=== PATIENT | male | born 1980 | race Caucasian/White ===

== ENCOUNTER 2024-10-08 16:56 | Emergency (ER) | payer MEDICAID, SELFPAY ==
[2024-10-08 17:17] VITALS: BP 124/81; PULSE 73; RESP 18; TEMP 36.8; O2SAT 97; BMI 24.2
--- NOTE | 2024-10-08 17:17 | ED.GENADULT ---
HPI - General Adult General Chief complaint: Urogenital-Male Stated complaint: Left & lower back pain hurting lung/ burn urinatin Time Seen by Provider: 10/08/24 23:11 Source: patient, RN notes reviewed, old records reviewed and full time staff interpreter Mode of arrival: ambulatory Limitations: language barrier History of Present Illness ED Provider: Samina MENDOZA narrative: 44-year-old male presents for evaluation of right-sided low back pain and left upper back pain patient reports he has had pain for 1 week. He denies any specific injury. He states waking up with the pain. He reports having had kidney stones in the past in the location of his pain is similar but it does not feel exactly the same. He denies any burning with urination to me, though his triage note reports that he did mentioned dysuria. 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 into different angles denies any fevers, chills, cough denies any abdominal pain, nausea vomiting, diarrhea Related Data Previous Rx's ?Medication ?Instructions ?Recorded cyclobenzaprine 10 mg tablet 10 mg PO TID PRN muscle spasm #20 10/08/24 tabs hydroxyzine HCl 25 mg tablet 25 mg PO TID PRN itching #30 tabs 10/08/24 ibuprofen 600 mg tablet 600 mg PO Q6H PRN pain #20 tabs 10/08/24 Allergies Allergy/AdvReac Type Severity Reaction Status Date / Time squid Allergy Rash Verified 10/08/24 17:20 Review of Systems Constitutional: Constitutional: Denies body ache(s), Denies chills, Denies fever(s) and Denies headache(s) Eyes: Eyes: Denies blurry vision ENT: Denies vertigo and Denies headache(s) Cardiovascular: Cardiovascular: Denies chest pain and Denies dyspnea on exertion Respiratory: Respiratory: Denies cough and Denies dyspnea on exertion Gastrointestinal: Gastrointestinal: Denies abdominal pain and Denies vomiting Musculoskeletal: Musculoskeletal: Reports back pain Integumentary/Breasts: Skin/Breast: Denies rash Neurologic: Denies vertigo and Denies headache(s) Psychiatric: Psychiatric: Denies anxiety PMFSH Social History Social History Alcohol intake: never Smoked in Last 30 Days: No Use of substances other than those prescribed or required for medical reasons: No Advance Directives: No Advance Directives Information Provided: Yes Physical Exam ED Vital Signs: Vital Signs - 24 hr 10/08/24 17:17 10/08/24 23:25 Temperature 98.2 F 97.2 F Pulse Rate 73 59 Respiratory Rate 18 18 Blood Pressure 124/81 131/85 Pulse Oximetry 97 98 Oxygen Delivery Method Room Air Room Air BMI result Body Mass Index 24.2 Const General: healthy appearing, comfortable, no acute distress, alert and awake Nutritional Appearance: well nourished Orientation/consciousness: patient oriented x3 HENMT Head: Yes normocephalic and Yes atraumatic Eyes Eyelids: Yes eyelids normal Conjunctivae: conjunctivae normal Sclerae: sclerae normal Corneas: corneas normal Pupils: Equal, round and reactive pupils present EOM: EOMs intact bilaterally Neck Neck: Yes full ROM Resp Effort & Inspection: normal respiratory effort, able to speak in complete sentences, no audible wheezes and not labored Auscultation: clear to auscultation bilaterally GI Inspection: No distended Palpation (GI): Soft to palpation, not firm, nontender, no guarding and not rigid Back/Spine/Pelvis Other: there is mild tenderness to the right lumbar paraspinous region. No vertebral tenderness. No step-offs or deformities Skin General skin exam: no rashes or lesions noted and elasticity normal Neuro General: patient oriented x3 Cranial nerves: Yes Equal, round and reactive pupils present and Yes Bilaterally intact EOM present Cognition (Neuro): normal cognition Extrem Other: Moving all extremities well without any obvious deformities Course Course Course Narrative: This is an RME: Additional HPI, ROS, PE not included below will be deferred to primary provider. RME assessment and note performed by: Kiarra Malone PA-C This is a [id number]-male, with no known medical problems, who presents to the ER with a complaint of back pain and dysuria since yesterday. Also reporting left sided CP. No nausea or vomiting. Endorsing dizziness. Plan: Labs, UA, further ER eval needed Medical Decision Making Medical Decision Making MDM Narrative: 44-year-old male presents for evaluation of low back pain, right greater than left. His physical exam is reassuring. He denies using IV drugs, there is no evidence of infectious cause. He has a history of kidney stones, there is no hematuria or pyuria. Renal function is within normal limits. clinically I think the patient's pain is most likely related to his job in maintenance and muscle strains. I discussed this with the patient and we will discharge him with cyclobenzaprine and ibuprofen. He reports he is having issues with anxiety in his requesting medication to help him when he is home and feeling lonely. He is not suicidal or depressed. I agreed to prescribe him a short course of hydroxyzine Differential Diagnosis Differential Diagnoses: The differential diagnosis associated with the presentation includes muscle strain Obstructive uropathy Pyelonephritis Radiculopathy Anxiety Lab Data MDM Lab Attestation statement: I reviewed the patient's lab results. no leukocytosis or significant anemia. There is a very mild anemia of unclear etiology. normal platelet count. No electrolyte abnormalities warranting intervention. Urinalysis unremarkable 10/08/24 17:53 10/08/24 17:53 Labs: Lab Results 10/08/24 Range/Units 17:53 WBC 8.4 (4.8-10.8) X10*3/uL RBC 4.51 L (4.60-5.80) X10*6/uL Hgb 13.7 L (14.0-18.0) g/dl Hct 38.7 L (42.0-52.0) % MCV 85.8 (80.0-98.0) fL MCH 30.4 (27.0-33.0) pg MCHC 35.4 (31.0-36.0) g/dl RDW 12.9 (11.0-16.0) % Plt Count 207 (160-400) X10*3/uL MPV 10.1 (9.4-12.4) fL Immature Gran % (Auto) 0.2 (0.0-0.4) % Neut % (Auto) 67.1 (45-73) % Lymph % (Auto) 23.1 (20-40) % Cherry % (Auto) 7.7 (2-11) % Eos % (Auto) 1.4 (0-4) % Baso % (Auto) 0.5 (0-2) % Lymph # (Auto) 2.0 (1.2-4.9) X10*3/uL Cherry # (Auto) 0.7 (0.1-1.2) X10*3/uL Eos # (Auto) 0.1 (0.0-0.4) X10*3/uL Baso # (Auto) 0.0 (0.0-0.2) X10*3/uL Abs Immat Gran (auto) 0.02 (0.00-0.03) X10*3/uL Absolute Neuts (auto) 5.7 (2.0-8.3) x10*3/uL Absolute Nucleated RBC 0.000 (0.0-0.012) X10*3/uL Nucleated RBC % (auto) 0.0 (0.0-0.2) /100WBC Sodium 141 (135-145) mmol/L Potassium 3.6 (3.3-5.1) mmol/L Chloride 108 (96-108) mmol/L Carbon Dioxide 27 (22-29) mmol/L Anion Gap 10 L (12-20) BUN 16 (9-16) mg/dL Creatinine 0.85 (0.5-1.4) mg/dL Estim Creat Clear Calc 148.5 Estimated GFR > 60 Random Glucose 108 (60-115) mg/dL Calcium 9.2 (8.4-10.2) mg/dL Magnesium 2.2 (1.6-2.6) mg/dL Total Bilirubin 0.6 (0.0-1.0) mg/dL Direct Bilirubin 0.2 (0.0-0.5) mg/dL AST 20 (5-37) U/L ALT 25 (0-40) U/L Alkaline Phosphatase 58 (39-117) U/L Total Protein 7.2 (6.5-8.0) g/dL Albumin 4.8 (3.5-5.0) g/dL Urine Color Yellow Urine Appearance Clear Urine pH 5.5 (5.0-9.0) Ur Specific Lindsay 1.025 (1.005-1.025) Urine Protein Negative (Neg-Trace) mg/dL Urine Glucose (UA) Negative (Negative) mg/dL Urine Ketones Trace (Negative) mg/dL Urine Blood Negative (Negative) Urine Nitrite Negative (Negative) Ur Leukocyte Esterase Negative (Negative) Tests considered The following testing was considered but not selected: consider CT abdomen and pelvis without contrast to evaluate for obstructive uropathy the patient's pain is clinically more likely musculoskeletal in his urinalysis is clear, CT scan deferred Discharge Plan Discharge Clinical Impression: Back pain, Anxiety Patient Disposition: Home, Self-Care Instructions: Acute Low Back Pain (ED), Anxiety (ED) Additional Instructions: your workup in the ER today was reassuring. I think your pain is most likely related to muscle spasms from contorting your back in different angles. Your urinalysis did not show signs of blood or infection. Your blood work was also reassuring use ibuprofen as needed for pain. Use cyclobenzaprine as needed for muscle spasms. This may make you drowsy, do not drink alcohol or drive after taking it you may take hydroxyzine as needed for anxiety you may follow-up with your primary doctor Prescriptions: New ibuprofen 600 mg tablet 600 mg PO Q6H PRN (Reason: pain) Qty: 20 0RF cyclobenzaprine 10 mg tablet 10 mg PO TID PRN (Reason: muscle spasm) Qty: 20 0RF hydroxyzine HCl 25 mg tablet 25 mg PO TID PRN (Reason: itching) Qty: 30 0RF Stand Alone Forms: Work/School Release Print Language: Martiniquais
--- NOTE | 2024-10-08 17:22 | ECG_ITS ---
Test Reason : cp Blood Pressure : */* mmHG Vent. Rate : 57 BPM Atrial Rate : 57 BPM P-R Int : 154 ms QRS Dur : 92 ms QT Int : 416 ms P-R-T Axes : 84 82 68 degrees QTcB Int : 404 ms Sinus bradycardia Otherwise normal ECG No previous ECGs available Referred By: Kiarra Malone Electronically Signed By: JOSELIN LUIS
--- NOTE | 2024-10-08 17:56 | MHC.EDTECH ---
delay on ekg. ekg machine was being used on another patient nurse aware
[2024-10-08 18:02] LABS: MANUAL DIFF FLAG NO
[2024-10-08 18:03] LABS: Basophils Percent Auto 0.5 % (0-2); Eosinophils Absolute Auto 0.1 X10*3/uL (0.0-0.4); Eosinophils Percent Auto 1.4 % (0-4); Hematocrit 38.7 % (42.0-52.0); Hemoglobin 13.7 g/dl (14.0-18.0); Imm Gran Abs Auto 0.02 X10*3/uL (0.00-0.03); Imm Gran Pct Auto 0.2 % (0.0-0.4); Lymphocytes Percent Auto 23.1 % (20-40); Mean Corpuscular HGB Conc 35.4 g/dl (31.0-36.0); Mean Corpuscular Hemoglobin 30.4 pg (27.0-33.0); Mean Corpuscular Volume 85.8 fL (80.0-98.0); Mean Platelet Volume 10.1 fL (9.4-12.4); Monocytes Absolute Auto 0.7 X10*3/uL (0.1-1.2); Monocytes Percent Auto 7.7 % (2-11); Neutrophils Absolute Auto 5.7 x10*3/uL (2.0-8.3); Neutrophils Percent Auto 67.1 % (45-73); Platelet Count 207 X10*3/uL (160-400); Red Blood Count 4.51 X10*6/uL (4.60-5.80); Red Cell Distribution Width 12.9 % (11.0-16.0); White Blood Count 8.4 X10*3/uL (4.8-10.8)
[2024-10-08 18:04] LABS: Appearance Urine Clear; Color Urine Yellow; Glucose Urine UA Negative (Negative); Leukocyte Esterase Urine Negative (Negative); Nitrite Urine Negative (Negative); PH 5.5 (5.0-9.0); Specific Gravity - Urine 1.025 (1.005-1.025); Urine Blood Negative (Negative); Urine Ketones Trace mg/dL (Negative); Urine Protein Negative (Neg-Trace)
[2024-10-08 18:19] LABS: Alanine Aminotransferase 25 U/L (0-40); Albumin Level 4.8 g/dL (3.5-5.0); Alkaline Phosphatase 58 U/L (39-117); Anion Gap 10 (12-20); Aspartate Amino Transferase 20 U/L (5-37); Bilirubin Direct 0.2 mg/dL (0.0-0.5); Bilirubin Total 0.6 mg/dL (0.0-1.0); Blood Urea Nitrogen 16 mg/dL (9-16); Calcium 9.2 mg/dL (8.4-10.2); Carbon Dioxide 27 mmol/L (22-29); Chloride 108 mmol/L (96-108); Creatinine Clr Calc Pharmacy 148.5; Estimated Glomerular Filt Rate > 60; Glucose Random 108 mg/dL (60-115); Magnesium 2.2 mg/dL (1.6-2.6); Potassium 3.6 mmol/L (3.3-5.1); Sodium 141 mmol/L (135-145); Total Protein 7.2 g/dL (6.5-8.0)
[2024-10-08 23:25] VITALS: BP 131/85; PULSE 59; RESP 18; TEMP 36.2; O2SAT 98
[2024-10-08 23:53] VITALS: BP 131/85; PULSE 59; RESP 18; TEMP 36.2; O2SAT 98
== END 2024-10-08 23:54 | disposition home or self-care (01) ==
PROVIDERS: Physician Assistant Medical; Emergency Provider Emergency Medicine
DX: M54.50 Low back pain, unspecified (principal); R30.0 Dysuria; F41.9 Anxiety disorder, unspecified; R00.1 Bradycardia, unspecified; R07.89 Other chest pain; M54.6 Pain in thoracic spine; R42 Dizziness and giddiness; Z87.442 Personal history of urinary calculi
CPT/HCPCS: 36415; 80048; 80076; 81003; 83735; 85025; 93005; 99283; 99285

== ENCOUNTER → 2024-10-08 17:22 | Outpatient (BNV) | payer MEDICAID, SELFPAY | PROVIDERS: Emergency Provider Emergency Medicine; Visit Provider Internal Medicine | DX: R00.1 Bradycardia, unspecified (principal) | CPT/HCPCS: 93010 ==